=== PATIENT | male | born 2005 | race Hispanic/Latino ===

== ENCOUNTER 2025-04-21 17:48 | Emergency (ER) | payer OTHER | END 2025-04-21 19:31 | disposition home or self-care (01) | LOC: CSHERS 17:48 | DX: S61.012D Laceration without foreign body of left thumb without damage to nail, subsequent encounter (principal); F17.290 Nicotine dependence, other tobacco product, uncomplicated; X58.XXXD Exposure to other specified factors, subsequent encounter ==